=== PATIENT | male | born 2000 | race Hispanic/Latino ===

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

== ENCOUNTER 2022-04-03 16:46 | Outpatient (CLI) | payer OTHER | END 2022-04-03 16:47 | disposition home or self-care (01) | LOC: SCSRAD 16:46 | PROVIDERS: ATTEND Family Medicine | DX: Z02.9 Encounter for administrative examinations, unspecified (principal) | CPT/HCPCS: 71046 ==